=== PATIENT | male | born 1950 | race Caucasian/White ===

== ENCOUNTER 2018-09-04 06:45 | Outpatient (CLI) | payer OTHER ==
[2016-03-04 19:52] VITALS: BMI 31.7
--- NOTE | 2018-09-05 09:28 | STRESSECHO ---
Date of Test: 09/04/18 Ordering Physician: DR. JCARLOS JOAQUIN Occupation: RETIRED Reason for Exam: HTN, SOB, DYSLIPIDEMIA Smoking History: VAPES-4-5 YR, PRIOR SMOKED 38 YRS Height: 68" Weight: 229 LBS Current Medications: PRAVACHOL, LOSARTAN, HCTZ, LEVOTHYROXINE, ASA, FISH OIL Resting EKG: SINUS RHYTHM/ NO ACUTE CHANGES Target Heart Rate: 127/150 S-T SEGMENT STAGE MPH/GRADE HEART RATE BPM BLOOD PRESSURE MMHG RHYTHM +/- ELEVATION DEPRESSION SYMPTOMS AT REST 68 BPM 138/68 MMHG SR X NONE 1 1.7/10% 108 BPM 160/72 MMHG SR X NONE 2 2.5/12% 125 BPM 200/88 MMHG SR X NONE 3 3.4/14% 4 4.2/16% 5 5.0/18% Immediately After 130 BPM SR X SHORT OF BREATH Minutes Post Exercise 2:00 92 BPM 190/100 MMHG SR X NONE Minutes Post Exercise 6:00 70 BPM 160/88 MMHG SR X NONE DURATION OF EXERCISE: 6:04 MAXIMUM HEART RATE REACHED: 130 BPM REASON FOR TERMINATION: SHORT OF BREATH 94% OXYGEN SATURATION WITH EXERCISE ON ROOM AIR METS 7.2 INTERPRETATION: 1. NO EVIDENCE OF ISCHEMIA BY ST-T WAVE 2. NO CHEST PAIN OR DISCOMFORT 3. BLOOD PRESSURE RESPONSE: SYSTOLIC HYPERTENSION WITH EXERCISE 4. ISOLATED PVC'S NOTED WITH EXERCISE NORMAL LEFT VENTRICULAR CONTRACTILITY--RESTING AND POST EXERCISE MTDD
--- NOTE | 2018-09-05 09:33 | ECHOSTRESS ---
Date of Exam: 09/04/18 Ordering Physician: DR. JCARLOS JOAQUIN Reason for Echo: HTN, SOB, STRESS TEST--NO ISCHEMIA M-Mode Normal Adult Results LV Dimensions Normal Adult Results AoV Opening excursions >1.6 LVEDD-base- 3.5-5.8 Ao root dimensions 2.0-3.7 LVESD-base- 3.1-4.6 L. Atrium dimensions 1.9-3.8 Post. Wall thickness 0.8-1.1 IV septum (thickness) 0.7-1.2 Post. Wall excursion 0.72-1.3 Septal motion Systolic motion R. Ventricular cavity 1.5-2.0 LVEF 60% Paradoxical septal wall motion 2-D: NORMAL LEFT VENTRICULAR CONTRACTILITY--RESTING AND POST EXERCISE M-MODE: MV: AV: TV: PV: CHAMBER SIZE: WALL MOTION: NORMAL LEFT VENTRICULAR CONTRACTILITY--RESTING AND POST EXERCISE PERICARDIUM: INTERPRETATION: 1. NORMAL LEFT VENTRICULAR CONTRACTILITY--RESTING AND POST EXERCISE MTDD
--- NOTE | 2018-09-05 09:37 | ECHO2D ---
Date of Exam: 09/04/18 Ordering Physician: DR. JCARLOS JOAQUIN Room #: OP Reason for Echo: HTN, SOB M-Mode Normal Adult Results LV Dimensions Normal Adult Results AoV Opening excursions >1.6 >1.6 LVEDD-base- 3.5-5.8 5.4 Ao root dimensions 2.0-3.7 3.8 LVESD-base- 3.1-4.6 L. Atrium dimensions 1.9-3.8 4.5 Post. Wall thickness 0.8-1.1 1.2 IV septum (thickness) 0.7-1.2 1.2 Post. Wall excursion 0.72-1.3 NORMAL Septal motion NORMAL Systolic motion R. Ventricular cavity 1.5-2.0 NORMAL LVEF 60% 52% Paradoxical septal wall motion NORMAL 2-D : 2-D M Mode Echocardiogram was performed using apical four chamber and left parasternal long and short axis views. Mitral, tricuspid and aortic valves appear to be normal. Contractility of the left ventricle seems to be normal, so is the cavity size. Enlarged Left atrial cavity. Aortic root appears to be normal. There is no pericardial effusion. There is no thrombus noted in the left ventricular or left aortic cavity. No mitral valve prolapse noted. M-MODE: MV: NORMAL AV: NORMAL TV: NORMAL PV: CHAMBER SIZE: ENLARGED LEFT ATRIAL CAVITY WALL MOTION: NORMAL PERICARDIUM: NORMAL INTERPRETATION: 1. LEFT VENTRICULAR HYPERTROPHY WITH ENLARGED LEFT ATRIAL CAVITY 2. STIFF LEFT VENTRICLE WITH EJECTION FRACTION 52% 3. NORMAL VALVES MTDD
== END 2018-09-04 06:46 | disposition home or self-care (01) ==
LOC: CAR 06:45
PROVIDERS: ATTEND Internal Medicine
DX: R06.02 Shortness of breath (principal); I10 Essential (primary) hypertension
CPT/HCPCS: 93005; 93010

== ENCOUNTER 2018-09-12 09:48 | Outpatient (CLI) | payer OTHER ==
[2016-03-04 19:52] VITALS: BMI 31.7
== END 2018-09-12 09:49 | disposition home or self-care (01) ==
LOC: CAR 09:48
PROVIDERS: ATTEND Internal Medicine
DX: R06.02 Shortness of breath (principal); I10 Essential (primary) hypertension